=== PATIENT | male | born 1945 | race Caucasian/White ===

== ENCOUNTER 2016-11-26 06:13 | Day surgery (SDC) | payer MEDICARE, OTHER ==
--- NOTE | ~2016-11-26 | EGD ---
EGD REPORT [facility] [address] [place]. [id number] NAME: MINGO DAY : 41 [place]US : [place] [facility] [place] [id number] AGE: 71 ADM/REG DATE : 11/26/16 MR#: [id number] REPORT SERV DATE: 11/26/16 DICTATED BY: LION FERNÁNDEZ DATE: 11/26/16 REPORT STATUS : Draft TRANSCRIBED BY: [facility] DATE: 11/26/16 [facility] Patient Name: Mingo Day Date of : 1945 Attending MD: LION FERNÁNDEZ MD Procedure Date No Time: 11/26/2016 Procedure: Colonoscopy Indications: Hematochezia, Constipation Referring MD: DOLLY FLOYD JR. Medicines: See the Anesthesia note for documentation of the administered medications Complications: No immediate complications. Procedure: Pre-Anesthesia Assessment: - ASA Grade Assessment: III - A patient with severe systemic disease. After I obtained informed consent, the scope was passed under direct vision. Throughout the procedure, the patient's blood pressure, pulse, and oxygen saturations were monitored continuously. The CF [id number] was introduced through the anus and advanced to the terminal ileum, with identification of the appendiceal orifice and IC valve. The colonoscopy was performed without difficulty. The patient tolerated the procedure well. The quality of the bowel preparation was adequate. Findings: The perianal and digital rectal examinations were normal. Internal hemorrhoids were found during retroflexion and were small. Diverticula were found in the sigmoid colon. A sessile polyp was found in the ascending colon. The polyp was small in size. The polyp was removed with a cold biopsy forceps. Resection and retrieval were complete. A sessile polyp was found in the transverse colon. The polyp was small in size. The polyp was removed with a cold biopsy forceps. Resection and retrieval were complete. Impression: - Internal hemorrhoids. - Diverticulosis in the sigmoid colon. - One small polyp in the ascending colon. Resected and retrieved. - One small polyp in the transverse colon. Resected and retrieved. Recommendation: - Patient has a contact number available for emergencies. The signs and symptoms of potential delayed EGD REPORT [address] [place]. [address] NAME: MINGO DAY : 41 [place]US : [place] [facility] [place] [id number] AGE: 71 ADM/REG DATE : 11/26/16 MR#: [id number] REPORT SERV DATE: 11/26/16 DICTATED BY: LION FERNÁNDEZ DATE: 11/26/16 REPORT STATUS : Draft TRANSCRIBED BY: [employer] [facility] DATE: 11/26/16 complications were discussed with the patient. Return to normal activities tomorrow. Written discharge instructions were provided to the patient. - Regular diet. - Continue present medications. - Repeat colonoscopy in 5 years for surveillance. - FOR YOUR BIOPSY RESULTS: Please go to [email or web address] and register to receive your results via the portal. Your biopsy results will be posted there in about 7 to 10 days. IF you do not see result in 10 days, call office. - Follow up with my nurse practitioner in 4 weeks - Continue your plavix Procedure Code(s): --- Professional --- 98217, Colonoscopy, flexible, proximal to splenic flexure; with biopsy, single or multiple Diagnosis Code(s): --- Professional --- K64.8, Other hemorrhoids K57.30, Diverticulosis of large intestine without perforation or abscess without bleeding D12.3, Benign neoplasm of transverse colon D12.2, Benign neoplasm of ascending colon K92.1, Melena K59.00, Constipation, unspecified CPT copyright 2013 [employer]. All rights reserved. The codes documented in this report are preliminary and upon coal screener review may be revised to meet current compliance requirements. Lion Fernández MD LION FERNÁNDEZ MD 11/26/2016 7:21 AM This report has been signed electronically. Number of Addenda: 0 Note Initiated On: 11/26/2016 7:02 AM Scope Withdrawal Time 0 hours 6 minutes 56 seconds [address] [place] [id number]
[~2016-11-26 06:13] MED LIST: ALTA2.5 PO; ASA5GR PO; ASCRIPTIN PO; BETAPACE80 PO; FLOMAX4 PO; LOP25 PO; NASONEX NAS; PLAVIX PO; RAPAFLO4 MG PO; TOPXL25 PO; VYTORIN 10/40 T1 TAB PO; ZOCOR40 PO
== END 2016-11-26 23:59 | disposition home health service (06) ==
LOC: DMU 06:13
PROVIDERS: Internal Medicine Gastroenterology
PROC: 0DBL8ZX Excision of Transverse Colon, Via Natural or Artificial Opening Endoscopic, Diagnostic (ICD-10-PCS; 2016-11-26)
PROC: 0DBK8ZX Excision of Ascending Colon, Via Natural or Artificial Opening Endoscopic, Diagnostic (ICD-10-PCS; principal; 2016-11-26 07:00)
DX: D12.2 Benign neoplasm of ascending colon (principal); D12.3 Benign neoplasm of transverse colon; K57.30 Diverticulosis of large intestine without perforation or abscess without bleeding; K64.8 Other hemorrhoids; I25.10 Atherosclerotic heart disease of native coronary artery without angina pectoris; I10 Essential (primary) hypertension; E78.00 Pure hypercholesterolemia, unspecified; G47.33 Obstructive sleep apnea (adult) (pediatric); M19.90 Unspecified osteoarthritis, unspecified site; L40.9 Psoriasis, unspecified; I48.92 Unspecified atrial flutter; Z99.81 Dependence on supplemental oxygen; Z95.1 Presence of aortocoronary bypass graft; Z88.2 Allergy status to sulfonamides; Z79.82 Long term (current) use of aspirin; Z79.899 Other long term (current) drug therapy; Z98.890 Other specified postprocedural states; Z87.891 Personal history of nicotine dependence; Z86.73 Personal history of transient ischemic attack (TIA), and cerebral infarction without residual deficits
CPT/HCPCS: 88305